=== PATIENT | female | born 1945 | race Hispanic/Latino ===

== ENCOUNTER 2016-11-25 05:53 | Inpatient (IN) | payer MEDICARE, OTHER ==
--- NOTE | 2016-11-25 06:34 | ED PDOC ---
Upper Extremity Pain/Injury Time Seen by Provider: 11/25/16 06:05 Chief Complaint (Nursing): Upper Extremity Problem/Injury Additional Complaint(s): 71 year old female presents to ED with complaints of right wrist pain with R wrist fracture (followed by Dr Gutierrez) and has a past medical history of HTN ( controlled), DM (controlled), osteoporosis, and osteoarthritis. Patient notes having multiple orthopedic surgeries in the past. pt states pain is worsening. PCP: Mateus Rios Past Medical History Reviewed: Historical Data, Nursing Documentation, Vital Signs Vital Signs: Last Vital Signs Temp 98.5 F 11/25/16 06:18 Pulse 80 11/25/16 06:18 Resp 18 11/25/16 06:18 BP 127/47 L 11/25/16 06:18 Pulse Ox 95 11/25/16 06:18 - Medical History PMH: HTN, Hypothyroidism - Surgical History Surgical History: Denies: No Surg Hx Other surgeries: multiple orthopedic surgeries - Family History Family History: States: No Known Family Hx - Social History Current smoker - smoking cessation education provided: Yes (1 pack per day) Ex-Smoker (has not smoked in the last 12 months): No Alcohol: None (ex-drinker) Drugs: Denies - Home Medications Home Medications: Ambulatory Orders Medication Instructions Recorded Alprazolam [Xanax] 2 mg PO QID 11/25/16 Atorvastatin [Lipitor] 11/25/16 Atorvastatin [Lipitor] 75 mg PO HS 11/25/16 DiphenhydrAMINE [Benadryl] 50 mg PO HS 11/25/16 FLUoxetine [Prozac] 90 mg PO DAILY 11/25/16 Levothyroxine [Synthroid] 11/25/16 Oxycodone HCl/Acetaminophen 1 tab PO QID 11/25/16 [Percocet 10-325 mg Tablet] Telmisartan [Micardis] 11/25/16 Zolpidem Tartrate [Ambien] 10 mg PO HS 11/25/16 oxyCODONE [oxyCODONE Immediate 30 mg PO BID 11/25/16 Release Tab] oxyCODONE/Acetaminophen [Percocet 5 - 325 mg PO Q4 PRN 11/25/16 5/325 mg Tab] - Allergies Allergies/Adverse Reactions: Allergies Allergy/AdvReac Type Severity Reaction Status Date / Time No Known Allergies Allergy Unverified 10/27/12 13:52 Review of Systems ROS Statement: Except As Marked, All Systems Reviewed And Found Negative Musculoskeletal: Positive for: Other (right wrist pain) Physical Exam - Reviewed Nursing Documentation Reviewed: Yes Vital Signs Reviewed: Yes - Physical Exam Appears: Positive for: Non-toxic, No Acute Distress (obese) Skin: Positive for: Normal Color, Warm, Dry Cardiovascular/Chest: Positive for: Regular Rate, Rhythm. Negative for: Murmur Respiratory: Positive for: Normal Breath Sounds. Negative for: Respiratory Distress Gastrointestinal/Abdominal: Positive for: Normal Exam, Soft. Negative for: Tenderness Extremity: Positive for: Normal ROM, Other (wrist splint on right hand. neurovacular intact. ). Negative for: Deformity Neurologic/Psych: Positive for: Alert, Oriented. Negative for: Motor/Sensory Deficits - Laboratory Results Result Diagrams: 11/25/16 06:40 11/25/16 06:40 - ECG O2 Sat by Pulse Oximetry: 95 (RA) Pulse Ox Interpretation: Normal Medical Decision Making Medical Decision Makin Initial impression: wrist fracture Initial plan: * T&S * EKG * Labs * PTT/PT * INPATIENT OR ADMISSION [address] Damian regarding pt, states to admit pt to the OR for surgery today. pt aware. Scribe Attestation: Documented by Tresa Ordoñez acting as a scribe for Tanvir Hoffman MD. Scribe Attestation: All medical record entries made by the Scribe were at my direction and personally dictated by me. I have reviewed the chart and agree that the record accurately reflects my personal performance of the history, physical exam, medical decision making, and the department course for this patient. I have also personally directed, reviewed, and agree with the discharge instructions and disposition. Disposition - Clinical Impression Clinical Impression: Fracture of wrist - Patient ED Disposition Is Patient to be Admitted: Yes - Disposition Disposition Time: 06:28 Condition: STABLE - Pt Status Changed To: Hospital Disposition Of: Inpatient (INPATIENT OR) - Admit Certification Admit to Inpatient:: After my assessment, the patient will require hospitalization for at least two midnights. This is because of the severity of symptoms shown, intensity of services needed, and/or the medical risk in this patient being treated as an outpatient.
[2016-11-25 06:51] LABS: BASO # 0.1 K/uL (0.0-0.2); BASO % 0.6 % (0.0-2.0); EOS # 0.3 K/uL (0.0-0.7); EOS % 2.1 % (0.0-4.0); HEMATOCRIT 37.4 % (34.0-47.0); LYMPH # 4.3 K/uL (1.0-4.3); LYMPH % 34.4 % (20.0-40.0); MEAN CELL VOLUME 82.3 fl (81.0-99.0); MEAN CORPUSCULAR HEMOGLOBIN 26.5 pg (27.0-31.0); MEAN CORPUSCULAR HGB CONC 32.2 g/dL (33.0-37.0); MEAN PLATELET VOLUME 8.6 fl (7.2-11.7); MONO # 0.8 K/uL (0.0-0.8); MONO % 6.4 % (0.0-10.0); NEUT % 56.5 % (50.0-75.0); RED CELL DISTRIBUTION WIDTH 14.2 % (11.5-14.5); WHITE BLOOD COUNT 12.5 K/uL (4.8-10.8)
[2016-11-25 07:09] LABS: ALB/GLOB RATIO 1.4 (1.0-2.1); ALKALINE PHOSPHATASE 100 U/L (38-126); ALT/SGPT 26 U/L (9-52); AST/SGOT 21 U/L (14-36); BILIRUBIN,TOTAL 0.3 mg/dl (0.2-1.3); BLOOD UREA NITROGEN 24 mg/dl (7-17); CALCIUM 9.5 mg/dL (8.4-10.2); CARBON DIOXIDE 27 mmol/L (22-30); CHLORIDE 105 mmol/L (98-107); GFR AFRICAN-AMERICAN > 60; GLUCOSE,RANDOM 116 mg/dL (65-105); POTASSIUM 3.6 MMOL/L (3.6-5.0); SODIUM 143 mmol/l (132-148)
[2016-11-25 07:25] LABS: PARTIAL THROMBOPLASTIN TIME 32.3 Seconds (25.6-37.1)
--- NOTE | 2016-11-25 07:58 | RAD ---
HISTORY: wrist pain COMPARISON: No prior. TECHNIQUE: Chest PA and lateral FINDINGS: LUNGS: Likely fibrotic changes in the left base with no definite infiltrate appreciated on acute basis. PLEURA: Trace left pleural effusion not excluded. None is seen the right. No pneumothorax bilaterally. CARDIOVASCULAR: Mild cardiomegaly is noted without pulmonary vascular derangement. OSSEOUS STRUCTURES: No significant abnormalities. VISUALIZED UPPER ABDOMEN: Normal. OTHER FINDINGS: None. IMPRESSION: Mild cardiomegaly. Trace of pleural effusion question. Left basilar fibrosis noted.
[2016-11-25] MEDS ORDERED: Lidocaine 1% Inj (20ml) ONE (08:57)
[2016-11-25] MEDS ORDERED: Bupivacaine 0.5% Inj(30mL) ONE (08:57)
[2016-11-25] MEDS ORDERED: Propofol 10 mg/ml Inj (20 ML) ONE (09:42)
[2016-11-25] MEDS ORDERED: Midazolam 2 MG/2 ML VIAL ONE (09:42)
[2016-11-25] MEDS ORDERED: ePHEDrine 50 mg/ml Inj ONE (09:49)
[2016-11-25] MEDS ORDERED: Lactated Ringer's 1,000 ML IV ONE (10:39)
[2016-11-25] MEDS ORDERED: Oxycodone/Acetaminophen 5/325 mg Tab PO PRN ×2 (11:37)
--- NOTE | 2016-11-25 11:39 | PCM.ANESB4 ---
Infraclavicular Block - Femoral Nerve Block Date of Procedure: 11/25/16 Anesthesiologist: Omar Pre-Procedure Diagnosis: R wrist fx Post-Procedure Diagnosis: same - Procedure Infraclavicular Block: The procedure was explained to the patient that it is for the post-operative pain management. Consent was obtained after a thorough discussion with the patient regarding the benefits and possible complications of local anesthetic block of the brachial plexus at the axillary area. The patient was brought to the operating room and standard monitors were applied. Time-out was held with the circulating nurse to confirm the correct surgery and the appropriate block. After applying oxygen by nasal cannula and administering IV Sedation, patient's head was gently rotated away from the operative __right shoulder and the area medial to the coracoid process and inferior to the clavicle was carefully palpated. The ultrasound transducer was then applied to the skin in the transverse plane and the brachial plexus was visualized surrounding the axillary artery and deep to the pectoralis major and minor muscles. After thorough identification, this area was prepped with Betadine solution three times and 1 % Lidocaine was injected subcutaneously for topical anesthesia. At this point, a #21 gauge Stimuplex 4-inch needle was inserted cephalad to the ultrasound transducer and inferior to the clavicle in-plane towards the posterior aspect of the axillary artery. Needle advancement was performed carefully under ultrasound visualization. Nerve stimulator was used and twitch of the affected extremity including fingers, hand, wrist and elbow was obtained at current of _0.3____MA. After repeated negative aspiration, _5____cc of _0.5__ __% ____bupiv was injected and this was followed with _25 cc of ___0.5____ % __bupiv . Under ultrasound guidance the local anesthetics were observed surrounding the cords of the brachial plexus. The needle was removed intact and sterile dressing was applied. The patient had stable vital signs, was conscious and in no apparent distress. The patient tolerated the axillary block of the brachial plexus well with stable vital signs was prepared for subsequent surgery.
--- NOTE | 2016-11-25 11:40 | PCM.SURG1 ---
Surgeon's Initial Post Op Note - Surgeon's Notes Surgeon: Dr. Gutierrez Grades 9 12 Tutor: Dr. Josef Seo, DPM PGY1 Type of Anesthesia: General LMA Anesthesia Administered By: Dr. Drew Pre-Operative Diagnosis: Right distal radius fracture Operative Findings: See operative report. Materials: 2.4 distal radius plate 3h RT; 2.7x12mm cortical screws x3; 2.4x18mm buttress pins x4; 2.4x16mm buttress pin; 2.4x10mm buttress pin. Injectables: 3cc 1% lidocaine Post-Operative Diagnosis: Same as above Operation Performed: Right distal radius open reduction internal fixation Specimen/Specimens Removed: None Estimated Blood Loss: EBL {In ML}: 5 Blood Products Given: N/A Drains Used: No Drains Post-Op Condition: Good Date of Surgery/Procedure: 11/25/16 Time of Surgery/Procedure: 09:45
[2016-11-25] MEDS ORDERED: Lactated Ringer's 1,000 ML IV SCH (11:59)
[2016-11-25] MEDS ORDERED: HYDROmorphone 0.5 mg/0.5 ml ISec IVP PRN (12:00)
[2016-11-25 13:19] VITALS: RESP 20
[2016-11-25] MEDS ORDERED: Oxycodone/Acetaminophen 5/325 mg Tab PO ONE (14:10)
[2016-11-25 14:49] VITALS: BP 124/68; PULSE 78; TEMP 98.3
--- NOTE | 2016-11-25 23:22 | OP ---
DATE OF PROCEDURE: 11/25/2016 SURGEON: Ezra Gutierrez MD. [employer] MECHANIC: resident Casie PREOPERATIVE DIAGNOSIS: Displaced two-part right distal radius fracture. POSTOPERATIVE DIAGNOSIS: Displaced two-part right distal radius fracture. PROCEDURE: Right distal radius open reduction and internal fixation, two-part, 862[address], using Synthes volar plate. ANESTHESIA: Regional and supplemental intravenous sedation. BLOOD LOSS: None. DRAINS: None. COMPLICATIONS: None. OPERATIVE FINDINGS: A stable volar-Turk fracture of the distal radius. DISPOSITION: Stable to recovery room. INDICATIONS FOR PROCEDURE: A 71-year-old female who slipped down the stairs, presents to the [facility] with a displaced distal radius fracture. She was taken emergently to Surgery for open reduction and internal fixation. Her fracture also consisted of volar carpal subluxation. Risks and benefits of the procedure were explained in great detail. Risks included but not limited to bleeding, infection, tendon, nerve, vessel injury, instability, chronic pain, potential need for additional surgery in the future. The patient understood the above risks and elected to proceed. DESCRIPTION OF PROCEDURE: The patient was taken to the operating room and placed supine on the operating room table. After adequate anesthesia was given and prophylactic antibiotics, a well-padded non-sterile tourniquet was placed on the patient's right upper extremity. The extremity was then prepped and draped in a standard surgical fashion. A time-out was performed and a proposed incision was marked out with a sterile marking pen. This was a longitudinal incision over the FCR tendon and angled radially at the proximal wrist crease. An Esmarch bandage was used to exsanguinate the limb and the tourniquet was inflated to 250 mmHg, and the Esmarch bandage was removed. An incision was made through the skin only. All superficial veins were cauterized. Careful dissection was then carried out down to the flexor carpi radialis sheath which was incised in its radial most border. The FCR was then retracted ulnarly. The floor of the FCR sheath was then incised. The flexor palmaris longus was retracted ulnarly and small branches of the radial artery were cauterized. The pronator quadratus was reflected in an L-shaped fashion. The base of the pronator quadratus flipped within the ulnar side. The fracture was then visualized. The volar articular fragment was reduced by combination of longitudinal traction and digital pressure. A Synthes plate was placed in the volar aspect of the distal radius and was temporarily transfixed with Zachary wires. X-rays revealed an anatomic reduction of the distal radius and excellent placement of the plate. In a sequential fashion, the proximal screws were placed in the plate in a standard radial fashion. Next, the Zachary wires were removed and the distal locking screws were then placed in a standard fashion. Rigid fixation was obtained. X-rays revealed excellent reduction of the fracture and excellent placement of the screws with no screws penetrating the articular surface. The wrist and forearm were taken through digital range of motion and full rotation was obtainable, the distal radial and ulnar joint were stable. The wound was irrigated with copious amounts of normal saline. The pronator quadratus was repaired back to itself. Tourniquet was deflated and hemostasis was obtained. Forearm Incision was closed with 4-0 nylon interrupted sutures. Sterile dressing was applied consisting of fluffs, 4x4, and a plaster splint. The patient tolerated the procedure well and was returned to recovery room awake, alert, and in excellent condition. Ezra Gutierrez MD
[2016-11-26 11:31] VITALS: O2SAT 95
--- NOTE | 2016-11-28 18:34 | CARD ---
APPROVED REPORT EKG Measurement Heart [id number] <Conclusion> Normal sinus rhythm Normal ECG
== END 2016-11-25 15:30 | disposition home or self-care (01) | DRG 512 ==
LOC: H.ER 05:53 → H.ERHOLD 06:28
PROVIDERS: ADMIT Orthopaedic Surgery; ATTEND Orthopaedic Surgery
PROC: 0PSH04Z Reposition Right Radius with Internal Fixation Device, Open Approach (ICD-10-PCS; principal; 2016-11-25 09:45)
PROC: 3E0T3BZ Introduction of Anesthetic Agent into Peripheral Nerves and Plexi, Percutaneous Approach (ICD-10-PCS; 2016-11-25 09:45)
DX: S52.561A Barton's fracture of right radius, initial encounter for closed fracture (principal); I10 Essential (primary) hypertension; E03.9 Hypothyroidism, unspecified; E11.9 Type 2 diabetes mellitus without complications; M81.0 Age-related osteoporosis without current pathological fracture; M19.90 Unspecified osteoarthritis, unspecified site; F17.210 Nicotine dependence, cigarettes, uncomplicated; W10.9XXA Fall (on) (from) unspecified stairs and steps, initial encounter; Y92.9 Unspecified place or not applicable